=== PATIENT | female | born 1995 | race Caucasian/White ===

== ENCOUNTER 2018-05-03 13:41 | Inpatient (IN) | payer BC, MEDICAID ==
[2018-05-03] MEDS ORDERED: Nalbuphine 20 MG/ML 1 ML Syringe IVPUSH PRN (14:26)
[2018-05-03] MEDS ORDERED: Ampicillin 2 GM in Sodium Chloride 0.9% 100 ML IV ONE (14:26)
[2018-05-03] MEDS ORDERED: Sodium Chloride 0.9% 10 ML Syringe FLUSH PRN (14:26)
[2018-05-03] MEDS ORDERED: Oxytocin/Lactated Ringers 10 UNIT/1,000 ML BAG IV SCH (14:30)
[2018-05-03] MEDS: Lactated Ringers 1,000 ML IV SCH ×3 (15:18→21:54)
--- NOTE | 2018-05-03 16:04 | PCM.LDHP ---
L&D History of Present Illness - General Date of Service: 05/03/18 Admit Problem/Dx: Patient Status Order with Admit Dx/Problem 05/03/18 14:27 Patient Status [ADT] Routine Admission Diagnosis/Problem Admission Diagnosis/Problem - planned 05/03/18 15:56 22 year-old 1 para 0 with an SHAUN of 05/14/2018 who was seen in clinic and found to be jane with cervical change from 3-4 cm with bloody show. Source of Information: Patient History Limitations: Reports: No Limitations - History of Present Illness Introduction:: Rosy is a 22-year-old 1 para 0 white female who is admitted in early labor with cervical change. She does change her cervix from 1-2 cm on last evaluation 1 week ago to 3 cm this a.m. to 4 cm this afternoon with back pain and contractions. She is admitted to labor and delivery with diagnosis of early labor and 38-3/7 weeks gestational age. OB/GYN NURSE history: 1 para 0 certain last menstrual period started 2017 last for approximately 5-7 days. Cycles are regular, final SHAUN was certain. Patient menarche at age 16. Cycles every 30 days. Positive hCG on 2017. Ultrasound supports the LMP dating on 2 occasions 10/15/2017 at 12/29/2017. Patient's course has been relatively unremarkable. She started her care at 9-6/7 weeks gestational age, was seen on a regular basis in our centering program. She had weight gain from 203 pounds up to 222 pounds for 19 pound weight gain. Her fundal height growth was appropriate of her and her vital signs are stable. Patient declined genetic evaluation. She desires epidural in labor and delivery. Her group B strep screen was positive in urine culture. She is not allergic to and a sounds. She is candidate for ampicillin prophylaxis in labor and delivery. She plans to breast-feed. The T dap immunization was given on 03/16/2018. labs: Blood is B+ with negative antibody screen. First hemoglobin is 13.3 g/dL and platelets were 315,000. She is rubella immune. RPR is nonreactive. Group B strep screen on urine culture was greater than 100,008 colonies per milliliter. Her hepatitis B surface antigen and HIV assays were both negative. Chlamydia and gonorrhea were both negative. Her second trimester hemoglobin was 11.1 g/dL. Her platelet counts 286,000 and her one-hour GTT was 98. Allergies sulfur drugs which causes a rash Medications: 1. vitamins 1 daily 2. Clindamycin phosphate external gel in the form of Cleocin T twice daily when necessary for acne Past medical history: 1. Exercise-induced asthma 2. Allergy to sulfa drugs Past surgical history: Unremarkable Family history: Mother is alive and well as is her father. Brothers and sisters are alive and well. Maternal grandfather is alive but with history of diabetes and high blood pressure. Maternal grandmother is secondary to lung cancer. Paternal grandfather is secondary to heart disease. Paternal grandmother is alive. There is no family history of cancer, bleeding/blood clotting problems related issues. Social history: Patient is single. She lives in [facility]. Her significant other's Danny. She does not use any significant most alcohol, drugs or tobacco. Review of systems: Review of systems: In general patient has no complaints other than back pain, contractions and bloody show.. Skin: Negative Lungs: No infectious symptoms or shortness of breath Cardiovascular: No chest pain or exercise intolerance Breasts: No lumps, changes in size, pain, dimpling, discharge or axillary or supraclavicular concerns. GI: Negative : Negative Musculoskeletal: Negative Neurological: Negative Physical exam: In general the patient is well-developed, well-nourished, pleasant female of stated age in no acute distress. Skin is warm dry without lesions. HEENT, neck and back within normal limits. Lungs are clear with good breath sounds in all lung pereira. Cardiovascular exam shows regular and rhythm without murmurs. Abdomen is 2 with with fundal height of 39 cm. Baby in vertex presentation by George maneuvers. She has no inguinal lymphadenopathy or hernias are noted. Genital exam shows cervix to be 4 cm, 90% effaced, very soft, -2 station, posterior position Extremities and neurological exam are grossly within normal limits. - Related Data Allergies/Adverse Reactions: Allergies Allergy/AdvReac Type Severity Reaction Status Date / Time Sulfa (Sulfonamide Allergy Rash Verified 05/03/18 14:24 Antibiotics) Home Medications: Home Meds Ferrous Gluconate [Iron] 240 mg PO DAILY 05/03/18 [History] Vit37/Iron/Folic Acid [Prenata] 1 each PO DAILY 05/03/18 [History] Past Medical History HEENT History: Reports: None Respiratory History: Reports: Asthma Other Respiratory History: exercise induced asthma - Infectious Disease History Infectious Disease History: Reports: Chicken Pox - Past Surgical History HEENT Surgical History: Reports: Adenoidectomy, Myringotomy w Tube(s), Tonsillectomy Musculoskeletal Surgical History: Reports: ORIF Other Musculoskeletal Surgeries/Procedures:: lt foot fx 2013 Social & Family History - Family History Family Medical History: Noncontributory - Tobacco Use Smoking Status *Q: Never Smoker Second Hand Smoke Exposure: No - Caffeine Use Caffeine Use: Reports: Coffee, Soda - Recreational Drug Use Recreational Drug Use: No H&P Review of Systems - Review of Systems: Review Of Systems: See Below L&D Exam - Exam Exam: See Below - Vital Signs Weight: 101.514 kg - Patient Data Lab Results Last 24 hrs: Laboratory Results - last 24 hr 05/03/18 Range/Units 15:10 WBC 13.46 H (3.98-10.04) K/mm3 RBC 4.06 (3.98-5.22) M/mm3 Hgb 12.4 (11.2-15.7) gm/L Hct 37.5 (34.1-44.9) % MCV 92.4 (79.4-94.8) fl MCH 30.5 (25.6-32.2) pg MCHC 33.1 (32.2-35.5) g/dl RDW Std Deviation 42.9 (36.4-46.3) fL Plt Count 270 (182-369) K/mm3 MPV 10.2 (9.4-12.3) fl Neut % (Auto) 79.1 H (34.0-71.1) % Lymph % (Auto) 14.6 L (19.3-51.7) % Wayne % (Auto) 5.6 (4.7-12.5) % Eos % (Auto) 0.3 L (0.7-5.8) Baso % (Auto) 0.1 (0.1-1.2) % Neut # (Auto) 10.63 H (1.56-6.13) K/mm3 Lymph # (Auto) 1.97 (1.18-3.74) K/mm3 Wayne # (Auto) 0.76 H (0.24-0.36) K/mm3 Eos # (Auto) 0.04 (0.04-0.36) K/mm3 Baso # (Auto) 0.02 (0.01-0.08) K/mm3 Result Diagrams: 05/03/18 15:10 Problem List Initiated/Reviewed/Updated: Yes Orders Last 24hrs: Active Orders 24 hr Category Date Time Status Patient Status [ADT] Routine ADT 05/03/18 14:27 Active Activity as Tolerated [RC] PFP Care 05/03/18 14:26 Active Communication Order [RC] ASDIRECTED Care 05/03/18 14:26 Active Heart Tones [RC] ASDIRECTED Care 05/03/18 14:27 Active Non Stress Test [RC] PER UNIT ROUTINE Care 05/03/18 14:26 Active Notify Provider [RC] PFP Care 05/03/18 14:26 Active Notify Provider [RC] PRN Care 05/03/18 14:26 Active Peripheral IV Care [RC] . DIRECTED Care 05/03/18 14:27 Active Vital Signs [RC] PER UNIT ROUTINE Care 05/03/18 14:26 Active Regular Diet [DIET] Diet 05/03/18 Dinner Active RAPID PLASMA REAGIN,RPR [CHEM] Routine Lab 05/03/18 15:10 Received Ampicillin 1 gm Med 05/03/18 18:30 Active Sodium Chloride 0.9% [Normal Saline] 100 ml IV Q4H Lactated Ringers [Ringers, Lactated] 1,000 ml Med 05/03/18 14:30 Active IV ASDIRECTED Nalbuphine [Nubain] Med 05/03/18 14:26 Active 10 mg IVPUSH Q2H PRN Oxytocin/Lactated Ringers [Pitocin in LR 10 Units/1,000 Med 05/03/18 14:30 Active ML] 10 unit in 1,000 ml IV .CONTINUOUS Sodium Chloride 0.9% [Saline Flush] Med 05/03/18 14:26 Active 10 ml FLUSH ASDIRECTED PRN Electronic Heart Tones Ext w TOCO [WOMSER] Oth 05/03/18 14:26 Ordered Routine Electronic Heart Tones Internal [WOMSER] Per Unit Oth 05/03/18 14:26 Ordered Routine Peripheral IV Insertion Adult [OM.PC] Routine Oth 05/03/18 14:26 Ordered Resuscitation Status Routine Resus Stat 05/03/18 14:26 Ordered Medication Orders Ampicillin Sodium 1 gm/ Sodium (Chloride) 100 mls @ 200 mls/hr IV Q4H GIOVANI Lactated Ringer's (Ringers, Lactated) 1,000 mls @ 100 mls/hr IV ASDIRECTED GIOVANI Last Admin: 05/03/18 15:18 Dose: 100 mls/hr Oxytocin/Lactated Ringer's (Pitocin In Lr 10 Units/1,000 Ml) 10 unit in 1,000 mls @ 500 mls/hr IV .CONTINUOUS GIOVANI Nalbuphine HCl (Nubain) 10 mg IVPUSH Q2H PRN PRN Reason: pain Sodium Chloride (Saline Flush) 10 ml FLUSH ASDIRECTED PRN PRN Reason: Keep Vein Open Assessment/Plan Comment:: 1. 38-3/7 week intrauterine , labor with change in cervical exam. 2.Group B strep positive status per urine culture in 3. She plans to breast-feed. 4. Patient desires epidural in labor and delivery 5. Increased distance from the hospital as patient lives in [place]. Is concerned about Roads and weather forecast. Plan: 1. Admit to labor and delivery. 2. Ampicillin group B strep prophylaxis per protocol 3. Epidural when necessary for labor analgesia 4. Routine labor care. 5. RPR and CBC upon admission.
[2018-05-03] MEDS: Ampicillin 1 GM in Sodium Chloride 0.9% 100 ML IV SCH ×2 (18:40→21:55)
[2018-05-03] MEDS ORDERED: ePHEDrine 50 MG/ML SDV IVPUSH PRN (18:57)
[2018-05-03] MEDS ORDERED: fentaNYL 100 MCG/2 ML SDV EPIDUR PRN (18:57)
[2018-05-03] MEDS ORDERED: Ondansetron 4 MG/2 ML SDV IVPUSH PRN (18:57)
[2018-05-03] MEDS ORDERED: diphenhydrAMINE 50 MG/ML SDV IVPUSH PRN (18:57)
[2018-05-03] MEDS ORDERED: fentaNYL/Bupivacaine-NS 2 MCG/ML-0.125%/PF 100 ML Bag EP SCH (19:00)
--- NOTE | 2018-05-03 19:52 | PCM.PREANE ---
Preanesthetic Assessment - Anesthesia/Transfusion/Family Hx Anesthesia History: Prior Anesthesia Without Reaction Family History of Anesthesia Reaction: No Transfusion History: Prior Transfusion Without Reaction - Review of Systems General: No Symptoms Pulmonary: No Symptoms (Exercise induced asthma) Cardiovascular: No Symptoms Gastrointestinal: No Symptoms Neurological: No Symptoms Other: Reports: None - Physical Assessment O2 Sat by Pulse Oximetry: 97 Respiratory Rate: 16 Vital Signs: Last Vital Signs Temp 36.4 C 05/03/18 14:26 Pulse 78 05/03/18 14:26 Resp 16 05/03/18 14:26 BP 133/72 05/03/18 14:26 Pulse Ox 97 05/03/18 14:26 Height: 1.77 m Weight: 101.514 kg ASA Class: 2 Mental Status: Alert & Oriented x3 Airway Class: Mallampati = 2 Dentition: Reports: Normal Dentition Thyro-Mental Finger Breadths: 3 Mouth Opening Finger Breadths: 3 ROM/Head Extension: Full Lungs: Clear to Auscultation, Normal Respiratory Effort Cardiovascular: Regular Rate, Regular Rhythm - Lab Values: Laboratory Last Values WBC 13.46 K/mm3 (3.98-10.04) H 05/03/18 15:10 RBC 4.06 M/mm3 (3.98-5.22) 05/03/18 15:10 Hgb 12.4 gm/L (11.2-15.7) 05/03/18 15:10 Hct 37.5 % (34.1-44.9) 05/03/18 15:10 MCV 92.4 fl (79.4-94.8) 05/03/18 15:10 MCH 30.5 pg (25.6-32.2) 05/03/18 15:10 MCHC 33.1 g/dl (32.2-35.5) 05/03/18 15:10 RDW Std Deviation 42.9 fL (36.4-46.3) 05/03/18 15:10 Plt Count 270 K/mm3 (182-369) 05/03/18 15:10 MPV 10.2 fl (9.4-12.3) 05/03/18 15:10 Neut % (Auto) 79.1 % (34.0-71.1) H 05/03/18 15:10 Lymph % (Auto) 14.6 % (19.3-51.7) L 05/03/18 15:10 Dixie % (Auto) 5.6 % (4.7-12.5) 05/03/18 15:10 Eos % (Auto) 0.3 (0.7-5.8) L 05/03/18 15:10 Baso % (Auto) 0.1 % (0.1-1.2) 05/03/18 15:10 Neut # (Auto) 10.63 K/mm3 (1.56-6.13) H 05/03/18 15:10 Lymph # (Auto) 1.97 K/mm3 (1.18-3.74) 05/03/18 15:10 Dixie # (Auto) 0.76 K/mm3 (0.24-0.36) H 05/03/18 15:10 Eos # (Auto) 0.04 K/mm3 (0.04-0.36) 05/03/18 15:10 Baso # (Auto) 0.02 K/mm3 (0.01-0.08) 05/03/18 15:10 - Allergies Allergies/Adverse Reactions: Allergies Allergy/AdvReac Type Severity Reaction Status Date / Time Sulfa (Sulfonamide Allergy Rash Verified 05/03/18 14:24 Antibiotics) - Acknowledgements Anesthesia Type Planned: Epidural Pt an Appropriate Candidate for the Planned Anesthesia: Yes Alternatives and Risks of Anesthesia Discussed w Pt/Guardian: Yes Pt/Guardian Understands and Agrees with Anesthesia Plan: Yes PreAnesthesia Questionnaire HEENT History: Reports: None Respiratory History: Reports: Asthma Other Respiratory History: exercise induced asthma - Infectious Disease History Infectious Disease History: Reports: Chicken Pox - Past Surgical History HEENT Surgical History: Reports: Adenoidectomy, Myringotomy w Tube(s), Tonsillectomy Musculoskeletal Surgical History: Reports: ORIF Other Musculoskeletal Surgeries/Procedures:: lt foot fx 2013 - SUBSTANCE USE Smoking Status *Q: Never Smoker Tobacco Use Within Last Twelve Months: No Second Hand Smoke Exposure: No Recreational Drug Use History: No - HOME MEDS Home Medications: Home Meds Ferrous Gluconate [Iron] 240 mg PO DAILY 05/03/18 [History] Vit37/Iron/Folic Acid [Prenata] 1 each PO DAILY 05/03/18 [History] - CURRENT (IN HOUSE) MEDS Current Meds: Current Medications Diphenhydramine HCl (Benadryl) 25 mg IVPUSH Q6H PRN PRN Reason: Pruritis Ephedrine Sulfate (Ephedrine Sulfate) 5 mg IVPUSH ASDIRECTED PRN PRN Reason: Hypotension Fentanyl (Sublimaze) 100 mcg EPIDUR ONETIME PRN PRN Reason: Pain Fentanyl/Bupivacaine HCl (Broiotta-Rcxte-Wb 2 Mcg/Ml-0.125%) 100 ml EP ASDIRECTED GIOVANI Ampicillin Sodium 1 gm/ Sodium (Chloride) 100 mls @ 200 mls/hr IV Q4H GIOVANI Last Admin: 05/03/18 18:40 Dose: 200 mls/hr Lactated Ringer's (Ringers, Lactated) 1,000 mls @ 100 mls/hr IV ASDIRECTED GIOVANI Last Admin: 05/03/18 15:18 Dose: 100 mls/hr Oxytocin/Lactated Ringer's (Pitocin In Lr 10 Units/1,000 Ml) 10 unit in 1,000 mls @ 500 mls/hr IV .CONTINUOUS GIOVANI Nalbuphine HCl (Nubain) 10 mg IVPUSH Q2H PRN PRN Reason: pain Ondansetron HCl (Zofran) 4 mg IVPUSH ONETIME PRN PRN Reason: Nausea/Vomiting Sodium Chloride (Saline Flush) 10 ml FLUSH ASDIRECTED PRN PRN Reason: Keep Vein Open Discontinued Medications Ampicillin Sodium 2 gm/ Sodium (Chloride) 100 mls @ 200 mls/hr IV ONETIME ONE Stop: 05/03/18 14:55 Last Admin: 05/03/18 15:19 Dose: 200 mls/hr
--- NOTE | 2018-05-04 02:11 | PCM.SN ---
- Free Text/Narrative Note: Rosy is a 22-year-old 1 now para 1001 white female was admitted on in early active labor. She has an SHAUN of 05/14/2018. She was seen in clinic and found to be jane with cervical change from 2-3+ centimeters. She is admitted to labor and delivery. Artificial rupture membranes eventually performed with resultant clear amniotic fluid. She progressed to plate cervical dilation by approximately 0045 hours on 05/04/2018. She had an epidural placed for labor and analgesia. At 0130 hrs. the patient delivered a viable, edwards , male infant with Apgars of 9 and 9, a weight of 3250 g (7 pounds 2.6 ounces), a length of 19.5 inches in the left occiput anterior position. The umbilical cord was was allowed to pulsate 1-2 minutes and then was clamped 2 and cut by the baby's father. The baby was placed on mom's abdomen. Nose and mouth were bulb suctioned. Cord blood was obtained. The umbilical cord had 3 vessels. Pitocin was administered IV after the cord was clamped facilitate increase in uterine tone and decrease likelihood of bleeding. Patient had a second-degree laceration which was repaired with 3-0 Monocryl in a routine fashion. Also had a very superficial left labia minora laceration which was not bleeding, had no significant anatomic distortion and was not sutured. Epidural was used for pain control for the repair. Placenta delivered in a Hood presentation, appeared intact and complete and was discarded per patient desire. Estimated blood loss was 500 mL. Patient plans to breast-feed. Condition: Good
[2018-05-04] MEDS ORDERED: Benzocaine/Menthol 20%-0.5% Spray 56 GM Canister TOP PRN (02:29)
[2018-05-04] MEDS ORDERED: Lanolin 100% Cream 7 GM Tube TOP PRN (02:29)
[2018-05-04] MEDS ORDERED: Acetaminophen 325 MG Tab PO PRN (02:29)
[2018-05-04] MEDS ORDERED: Witch Hazel Medicated Pads 100/Jar TOP PRN (02:29)
[2018-05-04] MEDS: Ibuprofen 600 MG Tab PO PRN ×3 (03:08→20:52)
--- NOTE | 2018-05-04 07:28 | PCM48HPAN ---
Post Anesthesia Note - EVALUATION WITHIN 48HRS OF ANESTHETIC Vital Signs in Normal Range: Yes Patient Participated in Evaluation: Yes Respiratory Function Stable: Yes Airway Patent: Yes Cardiovascular Function Stable: Yes Hydration Status Stable: Yes Pain Control Satisfactory: Yes Nausea and Vomiting Control Satisfactory: Yes Mental Status Recovered: Yes Resp Rate: 16
[2018-05-04] MEDS ORDERED: Bupivacaine 0.25% 10 ML SDV ONE (08:00)
[2018-05-04] MEDS ORDERED: Lidocaine 1.5% with EPINEPHrine 1:200,000 5 ML Amp ONE (08:00)
[2018-05-04] MEDS: Prenatal Multivitamin with Calcium/Folic Acid/Iron Tab PO SCH (09:29)
[2018-05-04] MEDS: Docusate Sodium 100 MG Cap PO PRN ×2 (10:24→22:14)
[2018-05-05] MEDS: Ibuprofen 600 MG Tab PO PRN ×3 (05:40→16:30)
--- NOTE | 2018-05-05 06:50 | PCM.SN ---
- Free Text/Narrative Note: note: Patient is doing well in the period. Minimal lochia, voiding well, ambulated without problems. Nursing without concerns. Patient is afebrile, vital signs are stable Abdomen is flat, soft, uterus is below the umbilicus and is firm and nontender. Legs are nontender. Assessment: recovery going well. Plan: Routine care. Patient be discharged home within the next 24-48 hours.
[2018-05-05] MEDS: Prenatal Multivitamin with Calcium/Folic Acid/Iron Tab PO SCH (09:02)
--- NOTE | 2018-05-05 15:45 | PCM.DCSUM1 ---
Discharge Summary - Hospital Course Free Text/Narrative:: Rosy is a 22-year-old 1 now para 1001 white female was admitted on 05/03 in early active labor. She has an SHAUN of 05/14/2018. She was seen in clinic and found to be jane with cervical change from 2-3+ centimeters. She is admitted to labor and delivery. Artificial rupture membranes eventually performed with resultant clear amniotic fluid. She progressed to plate cervical dilation by approximately 0045 hours on 05/04/2018. She had an epidural placed for labor and analgesia. At 0130 hrs. the patient delivered a viable, edwards , male infant with Apgars of 9 and 9, a weight of 3250 g (7 pounds 2.6 ounces), a length of 19.5 inches in the left occiput anterior position. The umbilical cord was was allowed to pulsate 1-2 minutes and then was clamped 2 and cut by the baby's father. The baby was placed on mom's abdomen. Nose and mouth were bulb suctioned. Cord blood was obtained. The umbilical cord had 3 vessels. Pitocin was administered IV after the cord was clamped facilitate increase in uterine tone and decrease likelihood of bleeding. Patient had a second-degree laceration which was repaired with 3-0 Monocryl in a routine fashion. Also had a very superficial left labia minora laceration which was not bleeding, had no significant anatomic distortion and was not sutured. Epidural was used for pain control for the repair. Placenta delivered in a Hood presentation, appeared intact and complete and was discarded per patient desire. Estimated blood loss was 500 mL. Patient plans to breast-feed. Condition: Good HPI Initial Comments: Rosy is a 22-year-old 1 now para 1001 white female was admitted on 05/03 in early active labor. She has an SHAUN of 05/14/2018. She was seen in clinic and found to be jane with cervical change from 2-3+ centimeters. She is admitted to labor and delivery. Artificial rupture membranes eventually performed with resultant clear amniotic fluid. She progressed to plate cervical dilation by approximately 0045 hours on 05/04/2018. She had an epidural placed for labor and analgesia. At 0130 hrs. the patient delivered a viable, edwards , male with Apgars of 9 and 9, a weight of 3250 g (7 pounds 2.6 ounces), a length of 19.5 inches in the left occiput anterior position. The umbilical cord was was allowed to pulsate 1-2 minutes and then was clamped 2 and cut by the baby's father. The baby was placed on mom's abdomen. Nose and mouth were bulb suctioned. Cord blood was obtained. The umbilical cord had 3 vessels. Pitocin was administered IV after the cord was clamped facilitate increase in uterine tone and decrease likelihood of bleeding. Patient had a second-degree laceration which was repaired with 3-0 Monocryl in a routine fashion. Also had a very superficial left labia minora laceration which was not bleeding, had no significant anatomic distortion and was not sutured. Epidural was used for pain control for the repair. Placenta delivered in a Hood presentation, appeared intact and complete and was discarded per patient desire. Estimated blood loss was 500 mL. Patient plans to breast-feed. Condition: Good Brief History: Rosy is a 22-year-old 1 now para 1001 white female was admitted on 05/03/2018 in early active labor. She has an SHAUN of 05/14/2018. She was seen in clinic and found to be jane with cervical change from 2-3+ centimeters. She is admitted to labor and delivery. Artificial rupture membranes eventually performed with resultant clear amniotic fluid. She progressed to plate cervical dilation by approximately 0045 hours on 05/04/2018. She had an epidural placed for labor and analgesia. At 0130 hrs. the patient delivered a viable, edwards, male with Apgars of 9 and 9, a weight of 3250 g (7 pounds 2.6 ounces), a length of 19.5 inches in the left occiput anterior position. The umbilical cord was was allowed to pulsate 1-2 minutes and then was clamped 2 and cut by the baby's father. The baby was placed on mom 's abdomen. Nose and mouth were bulb suctioned. Cord blood was obtained. The umbilical cord had 3 vessels. Pitocin was administered IV after the cord was clamped facilitate increase in uterine tone and decrease likelihood of bleeding. Patient had a second-degree laceration which was repaired with 3-0 Monocryl in a routine fashion. Also had a very superficial left labia minora laceration which was not bleeding, had no significant anatomic distortion and was not sutured. Epidural was used for pain control for the repair. Placenta delivered in a Hood presentation, appeared intact and complete and was discarded per patient desire. Estimated blood loss was 500 mL. Patient plans to breast-feed. Condition: Good Diagnosis: Stroke: No - Discharge Data Discharge Date: 05/05/18 Discharge Disposition: Home, Self-Care 01 Condition: Good - Discharge Diagnosis/Problem(s) (1) 38 weeks gestation of SNOMED Code(s): 05152272 ICD Code: Z3A.38 - 38 WEEKS GESTATION OF Status: Acute Current Visit: Yes (2) GBS (group B Streptococcus carrier), +RV culture, currently SNOMED Code(s): 0823947635614, 679197330, 8371208870470 ICD Code: O99.820 - STREPTOCOCCUS B CARRIER STATE COMPLICATING Status: Acute Current Visit: Yes (3) Asthma SNOMED Code(s): 413830131 ICD Code: J45.909 - UNSPECIFIED ASTHMA, UNCOMPLICATED Status: Acute Current Visit: Yes (4) Vaginal delivery SNOMED Code(s): 672221392 ICD Code: O80 - ENCOUNTER FOR FULL-TERM UNCOMPLICATED DELIVERY Status: Acute Current Visit: Yes (5) Second degree perineal laceration during delivery SNOMED Code(s): 5075892 ICD Code: O70.1 - SECOND DEGREE PERINEAL LACERATION DURING DELIVERY Status : Acute Current Visit: Yes - Patient Summary/Data Complications: None Consults: None Hospital Course: Rosy Tom was admitted for labor. On admission her cervix was dilated to 2 cm and changed to 3 cm. She was GBS positive and was started on ampicillin for GBS prophylaxis. She was given an epidural for anesthesia. She had artificial rupture of membranes with clear fluid. She progressed to complete and began pushing. On 05/04/2018 she had a normal vaginal delivery of a live male at 0130. Apgars of 9 and 9. Weight of 3250 g (7 pounds 2.6 ounces). Her course was uneventful. Her pain was well controlled and she had minimal lochia. She was ambulating, tolerating a regular diet and voiding normally. She was breast feeding. She was afebrile and her hematocrit was 37.5 on admission. She desired to be discharged home on the afternoon of PPD #1. Her blood type is B+. - Patient Instructions Diet: Regular Diet as Tolerated Activity: Apply Ice, As Tolerated Activity, Other: Nothing in the vagina for 6 weeks Driving: May Drive Today Showering/Bathing: May Shower Notify Provider of: Fever, Increased Pain, Swelling and Redness, Drainage, Nausea and/or Vomiting Other/Special Instructions: Please contact your physician's office if you have heavy vaginal bleeding enough to soak a pad in less than an hour for several hours. Monitor for any signs of an infection in the breasts with severe pain or redness of the breast. - Discharge Plan *PRESCRIPTION DRUG MONITORING PROGRAM REVIEWED*: Not Applicable *COPY OF PRESCRIPTION DRUG MONITORING REPORT IN PATIENT AUGIE: Not Applicable Home Medications: Home Meds Ferrous Gluconate [Iron] 240 mg PO DAILY 05/03/18 [History] Vit37/Iron/Folic Acid [Prenata] 1 each PO DAILY 05/03/18 [History] Acetaminophen [Tylenol] 650 mg PO Q6H PRN tablet 05/05/18 [Rx] Benzocaine/Menthol [Dermoplast Pain Relief Luther] 1 spray TOP ASDIRECTED PRN canister 05/05/18 [Rx] Docusate Sodium [Colace] 100 mg PO BID PRN cap 05/05/18 [Rx] Ibuprofen [Motrin] 600 mg PO Q6H PRN tablet 05/05/18 [Rx] Lanolin [Lansinoh HPA] 1 applic TOP ASDIRECTED PRN tube 05/05/18 [Rx] Witch Bee [Tucks] 1 pad TOP ASDIRECTED PRN pad 05/05/18 [Rx] Patient Handouts: Vaginal Delivery, Care After, Care of a Perineal Tear Referrals: Rodri Galeas MD [Primary Care Provider] - (Follow-up in 3-6 weeks for routine visit or earlier as needed.) - Discharge Summary/Plan Comment DC Time >30 min.: No - Patient Data Vitals - Most Recent: Last Vital Signs Temp 36.4 C 05/05/18 09:01 Pulse 78 05/05/18 09:01 Resp 16 05/05/18 09:01 BP 125/92 H 05/05/18 09:01 Pulse Ox 100 05/05/18 09:01 Weight - Most Recent: 101.514 kg I&O - Last 24 hours: Intake & Output 05/05/18 05/05/18 05/05/18 06:59 14:59 22:59 Intake Total 660 Balance 660 Lab Results - Last 24 hrs: Laboratory Results - last 24 hr 05/03/18 Range/Units 15:10 RPR Non-reactive (NONREACTIVE) Med Orders - Current: Current Medications Acetaminophen (Tylenol) 650 mg PO Q4H PRN PRN Reason: mild pain or fever Benzocaine/Menthol (Dermoplast Pain Relief Luther) 0 gm TOP ASDIRECTED PRN PRN Reason: Perineal Comfort Measure Last Admin: 05/04/18 03:07 Dose: 1 canister Docusate Sodium (Colace) 100 mg PO BID PRN PRN Reason: Constipation Last Admin: 05/04/18 22:14 Dose: 100 mg Emollient Ointment (Lansinoh Hpa) 0 gm TOP ASDIRECTED PRN PRN Reason: Sore Nipples Last Admin: 05/04/18 10:24 Dose: 1 drop Ibuprofen (Motrin) 600 mg PO Q4H PRN PRN Reason: Mild pain or fever Last Admin: 05/05/18 12:36 Dose: 600 mg Prenat Multivit/Burt/Iron/Folic Ac ( Plus Iron) 1 each PO DAILY GIOVANI Last Admin: 05/05/18 09:02 Dose: 1 each Witch Bee (Tucks) 1 pad TOP ASDIRECTED PRN PRN Reason: Hemorrhoid pain Last Admin: 05/04/18 03:07 Dose: 1 tub Discontinued Medications Bupivacaine HCl (Sensorcaine-Mpf 0.25%) 10 ml .ROUTE .STK-MED ONE Stop: 05/04/18 08:01 Diphenhydramine HCl (Benadryl) 25 mg IVPUSH Q6H PRN PRN Reason: Pruritis Ephedrine Sulfate (Ephedrine Sulfate) 5 mg IVPUSH ASDIRECTED PRN PRN Reason: Hypotension Fentanyl (Sublimaze) 100 mcg EPIDUR ONETIME PRN PRN Reason: Pain Last Admin: 05/03/18 21:18 Dose: 100 mcg Fentanyl/Bupivacaine HCl (Urifysru-Ubvvg-Ow 2 Mcg/Ml-0.125%) 100 ml EP ASDIRECTED GIOVANI Last Admin: 05/03/18 21:18 Dose: 100 ml Ampicillin Sodium 2 gm/ Sodium (Chloride) 100 mls @ 200 mls/hr IV ONETIME ONE Stop: 05/03/18 14:55 Last Admin: 05/03/18 15:19 Dose: 200 mls/hr Ampicillin Sodium 1 gm/ Sodium (Chloride) 100 mls @ 200 mls/hr IV Q4H [facility] Last Admin: 05/03/18 21:55 Dose: 200 mls/hr Lactated Ringer's (Ringers, Lactated) 1,000 mls @ 100 mls/hr IV ASDIRECTED [facility] Last Admin: 05/03/18 21:54 Dose: 100 mls/hr Oxytocin/Lactated Ringer's (Pitocin In Lr 10 Units/1,000 Ml) 10 unit in 1,000 mls @ 500 mls/hr IV .CONTINUOUS [facility] Last Admin: 05/04/18 03:09 Dose: 500 mls/hr Lidocaine/Epinephrine (Xylocaine-Mpf 1.5% W/Epinephrine 1:200,000) 5 ml .ROUTE .STK-MED ONE Stop: 05/04/18 08:01 Nalbuphine HCl (Nubain) 10 mg IVPUSH Q2H PRN PRN Reason: pain Ondansetron HCl (Zofran) 4 mg IVPUSH ONETIME PRN PRN Reason: Nausea/Vomiting Sodium Chloride (Saline Flush) 10 ml FLUSH ASDIRECTED PRN PRN Reason: Keep Vein Open
== END 2018-05-05 16:30 | disposition home or self-care (01) | DRG 807 ==
LOC: JD.OB 13:41 → JD.OBCHECK 13:41 → JD.OB 14:27 → JD.OBCHECK 14:27 → OBSVTOIN 05-04 01:30 → JD.OB 05-04 01:31
PROVIDERS: ADMIT Obstetrics & Gynecology; ATTEND Obstetrics & Gynecology
PROC: 3E0R3BZ Introduction of Anesthetic Agent into Spinal Canal, Percutaneous Approach (ICD-10-PCS; 2018-05-03)
PROC: 00HU33Z Insertion of Infusion Device into Spinal Canal, Percutaneous Approach (ICD-10-PCS; 2018-05-03)
PROC: 10E0XZZ Delivery of Products of Conception, External Approach (ICD-10-PCS; principal; 2018-05-04)
PROC: 6A550ZT Pheresis of Cord Blood Stem Cells, Single (ICD-10-PCS; principal; 2018-05-04)
PROC: 10907ZC Drainage of Amniotic Fluid, Therapeutic from Products of Conception, Via Natural or Artificial Opening (ICD-10-PCS; principal; 2018-05-04)
PROC: 0KQM0ZZ Repair Perineum Muscle, Open Approach (ICD-10-PCS; principal; 2018-05-04)
DX: O99.824 Streptococcus B carrier state complicating childbirth (principal); Z37.0 Single live birth; O70.1 Second degree perineal laceration during delivery; Z3A.38 38 weeks gestation of pregnancy; O99.52 Diseases of the respiratory system complicating childbirth; Z88.2 Allergy status to sulfonamides; J45.990 Exercise induced bronchospasm; O69.81X0 Labor and delivery complicated by cord around neck, without compression, not applicable or unspecified
CPT/HCPCS: 36415; 51702; 59025; 59409; 85025; 86592; A9270-GY; J0290; J2590; J3010; J3490; J7030; J7120